=== PATIENT | male | born 1950 | race Caucasian/White ===

== ENCOUNTER 2016-04-01 07:42 | Emergency (ER) | payer OTHER ==
--- NOTE | 2016-04-01 09:05 | ERNOTE ---
Date of Service: 04/01/16 Time Seen by Provider: 04/01/16 08:45 Stated Complaint: COUGH,URI,SORE THROAT Source: patient Exam Limitations: no limitations Immunizations: IMMUNIZATION HX History of Influenza Vaccine Yes Hx Pneumococcal Vaccination No Allergies/Adverse Reactions: Allergies No Known Allergies Allergy (Unverified 04/01/16 08:21) Home Medications: HOME MEDICATIONS HYDROcodone/ACETAMINOPHEN [[place] 5-325] 1 - 2 tab PO QID PRN #30 tab 04/01/16 [ Last Taken Unknown] Lisinopril [Zestril] 20 mg PO DAILY 04/01/16 [Last Taken Unknown] - History of Present Ilness Narrative: Nasal congestion and drainage started yesterday. Went down into his chest today. Non productive cough. 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 People in his family have had respiratory illness for the last two weeks. Timing: getting worse Severity: mild Frequency/Possible Cause: Reports: occasional episodes Modifying Factors - Improves: Reports: nothing Modifying Factors - Worsens: Reports: activity, coughing Associated Symptoms: Reports: cough, nasal congestion, nasal drainage, sore throat Prior Treatment: Denies: recently seen, treated by physician, currently on antibiotics Review of Systems - Review of Systems Constitutional: Present: fatigue, malaise EYE: Present: no symptoms reported ENT: Present: nose congestion, nasal drainage, sore throat Respiratory: Present: cough Cardiology: Present: no symptoms reported Gastrointestinal/Abdominal: Present: no symptoms reported Genitourinary: Present: no symptoms reported Musculoskeletal: Present: no symptoms reported Skin: Present: no symptoms reported Neurological: Present: no symptoms reported Endocrine: Present: no symptoms reported Hematologic/Lymphatic: Present: no symptoms reported Psych: Present: no symptoms reported All Other Systems: All systems neg except as marked - Patient's Past Medical History Patient History - Medical: No pertinent hx Patient History - Cardiac/Respiratory: No pertinent hx Patient History - Cancer: No Hx of Cancer Patient History - Surgical Procedures: No surgical history - Social History Living Situations: home Alcohol Use: none Drug Use: none Physical Exam - Physical Exam General Appearance: Present: wd/wn, alert, no apparent distress Eye Exam: Normal inspection: bilateral, PERRL: bilateral, EOMI: bilateral Ears, Nose, Throat: Present: normal ENT inspection, hearing grossly normal, nasal congestion, pharyngeal erythema. Absent: abnormal TM (R), abnormal TM (L) Neck: Present: normal inspection, nontender Respiratory: Present: no respiratory distress, normal breath sounds Cardiovascular/Chest: Present: regular rate, rhythm, no murmur Gastrointestinal/Abdominal: Present: normal bowel sounds, nontender, nondistended, soft, no organomegaly Back Exam: Present: normal inspection Extremity Exam: Present: normal inspection, non-tender, no edema, normal range of motion Neurological Exam: Present: alert, oriented, normal mood/affect, no motor/ sensory deficits Skin Exam: Present: normal color, warm/dry ED Progress - Vital Signs Patient's Vital Signs:: I have reviewed the patient's vital signs. Vital Signs: Vital Signs 04/01/16 08:17 Temperature 36.4 C L Pulse Rate 73 Respiratory 12 Rate Blood Pressure 137/83 O2 Sat by Pulse 96 Oximetry - Progress/Reassessment Chief Complaint: Upper Respiratory Symptoms Departure - Departure Clinical Impression: Viral respiratory illness Disposition: Home self-care Condition: Good Instructions: Viral Respiratory Infection, [id number], Form - Excuse from Work, School, or Physical Activity Additional Instructions: Rest. Drink lots of fluids. Off work till Saturday. See your health care provider on Saturday. Referrals: Alexandria Tilley FNP [Primary Care Provider] - Prescriptions: HYDROcodone/ACETAMINOPHEN [[place] 5-325] 1 - 2 tab PO QID PRN #30 tab PRN Reason: cough or discomfort.
[2016-04-01 09:21] VITALS: BP 134/86
== END 2016-04-01 09:27 | disposition home or self-care (01) ==
LOC: ER 07:42
DX: J06.9 Acute upper respiratory infection, unspecified (principal)

== ENCOUNTER 2018-07-05 18:36 | Observation (INO) ==
[2018-07-05 19:02] LABS: Hematocrit 45.8 % (42.0-52.0); Hemoglobin 15.5 gm/dL (13.5-18.0); Mean Cell Volume 94.4 fl (78-100); Mean Corpuscular Hgb Conc 33.8 g/dl (32-36); Mean Platelet Volume 9.2 fl (8-11.3); Neutrophil # 18.5 K/mm3 (1.3-6.0); Neutrophil % 90.3 % (42-75.0); Platelet Count 346 K/mm3 (150-450); Red Blood Count 4.85 M/mm3 (4.7-6.0); Red Cell Distribution Width 12.4 % (11.5-14.0); White Blood Count 20.5 K/mm3 (4.0-10.5)
[2018-07-05] MEDS ORDERED: NORMAL SALINE 1,000 ML IV ONE ×3 (19:12→21:48)
[2018-07-05] MEDS ORDERED: KETOROLAC TROMETHAMINE 30 MG/ML VIAL IV ONE (19:14)
[2018-07-05] MEDS ORDERED: ONDANSETRON HCL/PF 2 MG/ML VIAL IV ONE (19:15)
--- NOTE | 2018-07-05 19:15 | ERNOTE ---
Date of Service: 07/05/18 Time Seen by Provider: 07/05/18 19:09 Stated Complaint: FEVER,DIZZY,COUGH Presenting Symptoms:: cough, fever, other - dizziness when up, generalized weakness and headache Source: patient, family Exam Limitations: no limitations Immunizations: IMMUNIZATION HX Immunizations Up to Date Yes History of Influenza Vaccine No Hx Pneumococcal Vaccination No Allergies/Adverse Reactions: Allergies No Known Allergies Allergy (Verified 07/05/18 18:48) Home Medications: HOME MEDICATIONS fluticasone 50 mcg/actuation nasal spray,suspension 2 spray INTRANASAL DAILY #16 g 06/10/18 [Last Taken Unknown] lisinopril 20 mg tablet 20 mg PO DAILY #90 tab 06/24/18 [Last Taken Unknown] - History of Present Ilness Narrative: 67 yr old male with HTN, hyperlipidemia, allergic rhinitis, recent influenza A and sinusitis presents with fever, dizziness and cough. This began today. Complains of weakness today, at times too weak to sit up. Denies any SOB or C/P. Complains of generalized aching and headache. He was diagnosed with influenza last week and completed his Tamiful treatment. On 06/10/18 he was diagnosed with sinusitis and treated with Augmentin. On 06/24/18 he complained of fever, cough, body aching and fatigue. He was diagnosed with Influenza A and treated with Tamiflu. Date (Duration): 07/05/18 Time (Timing): 19:09 Timing: constant, getting worse Severity: mild Frequency/Possible Cause: Reports: illness exposure - recent Influenza A and sinusitis Modifying Factors - Improves: Reports: rest Modifying Factors - Worsens: Reports: activity Associated Symptoms: Reports: cough, dizziness, headache, muscle aches, fever/chills. Denies: chest pain/soreness, shortness of breath Prior Treatment: Reports: recently seen, treated by physician - Treated for sinusitis with Augmentin on 06/10/18 and treated for Influenza A on 06/24/18 Medical History (Updated 07/05/18 @ 21:42 by ILIA Mckeon) Hyperlipidemia (Chronic) Hypertension (Chronic) Onset Date: Unknown Allergic rhinitis (Chronic) Onset Date: Unknown Influenza vaccination declined Onset Date: ~12/18/17 will receive later in the season Right elbow pain Onset Date: Unknown Surgical History: Surgical History (Updated 08/08/18 @ 16:12 by Jannette Sevilla RN) No history of previous surgery Family History: Family History (Updated 10/16/17 @ 16:12 by Jannette Sevilla RN) Father Myocardial infarction Mother Alive and well Sister Diabetes Social History: Preferred Language Maltese Do you have any islam or No cultural preference? Smoking Status Former smoker Psych History No pertinent hx Alcohol Use none (Last Updated 06/25/18 @ 12:26 by KYLAH Mathur) No Social History Section defined Physical Exam - Physical Exam General Appearance: Present: wd/wn, alert, no apparent distress Head Exam: Present: normal inspection, no evidence of injury Ears, Nose, Throat: Present: normal ENT inspection. Absent: dry mucous membranes Neck: Present: normal inspection, nontender Respiratory: Present: no respiratory distress, no accessory muscle use, decreased breath sounds - decreased in the bases . Absent: crackles, rales, rhonchi, stridor, wheezing Cardiovascular/Chest: Present: no murmur, normal peripheral pulses, tachycardia Gastrointestinal/Abdominal: Present: normal bowel sounds, nontender, nondistended, soft Neurological Exam: Present: alert, oriented, normal mood/affect, no motor/sensory deficits Skin Exam: Present: normal color, warm/dry Progress - Results and Orders Patient's Lab Results:: I have reviewed the patient's lab results. - CBC - WBC ^ 20.5, Hgb 15.5, Hct 45.8, Plt 346, Neutrophil ^ 90.3, CMP - Sodium 136, Potassium 4.2, BUN 18, Cr 1.09, Calcium 9.2, AST 17, ALT 27 Lactic acid 1.1, blood cultures pending - Vital Signs Patient's Vital Signs:: I have reviewed the patient's vital signs. - Improved during stay. Temp decreased to 37.5 blood pressure fluid sensitive Vital Signs: Vital Signs 07/05/18 18:45 Temperature 38.5 C H Pulse Rate 118 H Respiratory Rate 19 Blood Pressure 118/65 O2 Sat by Pulse Oximetry 94 - X-Ray X-Ray #1 X-Ray: chest Interpretation: Discd w/ radiologist - Potential nodule opacity ligula, consider pneumonia. Neoplasm cannot be excluded. - Progress/Reassessment Chief Complaint: Upper Respiratory Symptoms Progress Note-Subjective: 07/05/18 21:34 Test results reviewed with patient and . Etiology and treatment plan discussed. Patient feels somewhat better. O2 sat on RA - 94%, on 2 L O2 97%. Tachycardia resolved with fluids and medications. Systolic blood pressure 102 - 104 with fluid bolus. When rate decreased to 500 cc /hr, systolic pressure decreased to 94. Pressure responded to fluid increased back to bolus rate. Patient unable to urinate during stay. Discussed admission with patient and . They are agreeable. Staffed case with Dr. Javier who graciously accepted him for Observation stay. 07/05/18 21:39 Plan - Plan Plan: admit to observation Departure Clinical Impression: Pneumonia Qualifiers: Pneumonia type: due to unspecified organism Laterality: left Lung location: upper lobe of lung Qualified Code(s): J18.1 - Lobar pneumonia, unspecified organism - Departure Disposition: Still a patient Condition: Good Referrals: Alexandria Tilley FNP [Primary Care Provider] -
[2018-07-05 19:19] LABS: Albumin * 3.6 gm/dl (3.4-5.0); Anion Gap 13.7 mmol/L (6.8-13.8); BUN/Creatinine Ratio 16.5 (9.0-21.6); Ca. Corrected For Albumin 9.2 mg/dL (8.4-10.2); Calcium * 9.2 mg/dL (7.9-10.9); Carbon Dioxide 24.5 mmol/L (24-32.6); Potassium 4.2 mmol/L (3.4-4.6); Total Protein 7.4 gm/dL (6.2-8.2)
[2018-07-05] MEDS ORDERED: cefTRIAXone SODIUM 1,000 MG/100 ML BAG IV ONE (19:45)
[2018-07-05] MEDS ORDERED: METHYLPREDNISOLONE SOD SUCC/PF 40 MG/ML VIAL IV ONE (19:48)
[2018-07-05] MEDS ORDERED: ALBUTEROL SULFATE/IPRATROPIUM 3 ML NEBU IH ONE (19:48)
[2018-07-05] MEDS ORDERED: METHYLPREDNISOLONE SOD SUCC/PF 125 MG/2 ML VIAL ONE (19:51)
[2018-07-05] MEDS ORDERED: ACETAMINOPHEN 500 MG TABLET PO ONE (20:03)
[2018-07-05] MEDS ORDERED: AZITHROMYCIN 250 MG TABLET PO ONE (20:49)
[2018-07-05] MEDS ORDERED: ACETAMINOPHEN 500 MG TABLET PO PRN (21:51)
[2018-07-05] MEDS: NORMAL SALINE 1,000 ML IV PRN (22:35)
[2018-07-06 02:48] LABS: Urine Bilirubin Negative (NEGATIVE); Urine Blood 25 /ul (NEGATIVE); Urine Ketone Negative (NEGATIVE); Urine Nitrite Negative (NEGATIVE); Urine Protein Negative (NEGATIVE); Urine Urobilinogen Normal (NORMAL)
[2018-07-06 03:04] LABS: Urine Appearance Clear (CLEAR); Urine Bacteria None Seen; Urine Color Yellow; Urine RBC TRACE /hpf (0-5); Urine WBC None Seen /hpf (0-5)
[2018-07-06] MEDS: ALBUTEROL SULFATE/IPRATROPIUM 3 ML NEBU IH SCH ×4 (06:05→18:00)
[2018-07-06] MEDS: NORMAL SALINE 1,000 ML IV PRN (06:38)
[2018-07-06 06:47] LABS: Hematocrit 39.8 % (42.0-52.0); Hemoglobin 13.2 gm/dL (13.5-18.0); Mean Cell Volume 96.8 fl (78-100); Mean Corpuscular Hemoglobin 32.1 pg (27-31); Mean Corpuscular Hgb Conc 33.2 g/dl (32-36); Mean Platelet Volume 9.4 fl (8-11.3); Platelet Count 279 K/mm3 (150-450); Red Blood Count 4.11 M/mm3 (4.7-6.0); Red Cell Distribution Width 12.5 % (11.5-14.0); White Blood Count 23.6 K/mm3 (4.0-10.5)
[2018-07-06 07:00] LABS: Total Cells Counted 100
[2018-07-06 07:03] LABS: Band 2 % (0-2.0); Lymphocyte 14 % (20-51); Monocyte 5 % (0-9); Neutrophil 79 % (42-75); Neutrophil # 18.6 K/mm3 (1.3-6.0)
[2018-07-06 07:04] LABS: Platelet Estimate Normal (NORMAL); RBC Morphology Normal (NORMAL)
[2018-07-06] MEDS ORDERED: ALBUTEROL SULFATE/IPRATROPIUM 3 ML NEBU IH SCH (09:00)
[2018-07-06] MEDS: predniSONE 20 MG TABLET PO SCH (09:43)
[2018-07-06] MEDS: AZITHROMYCIN 250 MG TABLET PO SCH (09:43)
[2018-07-06] MEDS: CEFDINIR 300 MG CAPSULE PO SCH ×2 (09:44→21:03)
--- NOTE | 2018-07-06 09:47 | HP ---
Chief Complaint - Chief Complaint Date of Service: 07/06/18 Time of Service: 09:05 Chief Complaint: cough, fever History of Present Illness: Patient with past medical history of hypertension and recent influenza treated with Tamiflu presented after several hours of headache and body aches. He reports feeling similar to when he was first diagnosed with the flu. He had a fever at home up to 102. He reports coughing for several weeks, minimally productive. He states he had several respiratory infections last year, which is not like him. He has a 20-year smoking history, quit 15 to 20 years ago. He was given some fluids in the ER for somewhat low blood pressure. He takes 20 mg lisinopril at home for HTN. He was given Rocephin, azithromycin, 80 mg of IV Solu-Medrol in the ED. Negative influenza, WBC of 20.5, elevated neutrophils. Potential pneumonia on chest x-ray, seen best on lateral view. This morning, he reports feeling much better. He was requiring some oxygen via [place] overnight, but that has been removed this morning. Medical History (Updated 07/05/18 @ 21:42 by ILIA Mckeon) Hyperlipidemia (Chronic) Hypertension (Chronic) Onset Date: Unknown Allergic rhinitis (Chronic) Onset Date: Unknown Influenza vaccination declined Onset Date: ~12/18/17 will receive later in the season Right elbow pain Onset Date: Unknown Surgical History: Surgical History (Updated 10/16/17 @ 16:12 by Jannette Sevilla RN) No history of previous surgery Family History: Family History (Updated 10/16/17 @ 16:12 by Jannette Sevilla RN) Father Myocardial infarction Mother Alive and well Sister Diabetes Social History: Patient Lives/Resources Home Utilized Occupation [employer] Preferred Language Spanish Do you have any yarsani or No cultural preference? Smoking Status Never smoker Have you smoked in the past 12 No months Do you dip or chew tobacco No Psych History No pertinent hx Alcohol Use none (Last Updated 06/25/18 @ 12:26 by KYLAH Mathur) No Social History Section defined Review Of Systems (GEN) - Review of Systems Generalized/Overall Review: Present: Fever Respiratory: Present: Cough Cardiac: Present: Chest Pain - with cough Abdominal: Absent: Nausea Genitourinary: Present: No Symptoms Reported Skin: Present: No Symptoms Reported Immunizations: IMMUNIZATION HX Immunizations Up to Date Yes History of Influenza Vaccine No Hx Pneumococcal Vaccination No Allergies/Adverse Reactions: Allergies Allergy/AdvReac Type Severity Reaction Status Date / Time No Known Allergies Allergy Verified 07/05/18 18:48 Home Medications: HOME MEDICATIONS fluticasone 50 mcg/actuation nasal spray,suspension 2 spray INTRANASAL DAILY #16 g 06/10/18 [Last Taken Unknown] lisinopril 20 mg tablet 20 mg PO DAILY #90 tab 06/24/18 [Last Taken Unknown] Exam - Exam Vital Signs: Vital Signs - Last Taken Temp 36.6 C 07/06/18 07:25 Pulse 75 07/06/18 07:25 Resp 16 07/06/18 07:25 BP 105/57 07/06/18 07:25 Pulse Ox 97 07/06/18 07:25 Constitutional: Present: Alert, Oriented x3, Cooperative, Well developed, No distress Respiratory: Present: lungs clear, normal breath sounds, other - room air Cardiovascular/Chest: Present: regular rate, rhythm Abdomen: Present: Normal bowel sounds, soft, nontender Extremity: Absent: lower extremity edema Eye contact: Present: cooperative, good eye contact Diagnostic Studies: Abnormal Lab Results 07/05/18 07/06/18 07/06/18 Range/Units 18:57 02:29 06:40 WBC 20.5 H 23.6 H (4.0-10.5) K/mm3 RBC 4.11 L (4.7-6.0) M/mm3 Hgb 13.2 L (13.5-18.0) gm/dL Hct 39.8 L (42.0-52.0) % MCH 32.0 H 32.1 H (27-31) pg Immature Gran % (Auto) 0.60 H (0.001-0.429) % Immature Gran # (Auto) 0.12 H (0.000-0.0310) K/mm3 Neutrophils % 90.3 H (42-75.0) % Neutrophils % (Manual) 79 H (42-75) % Lymphocytes % 4.1 L (20-51) % Lymphocytes % (Manual) 14 L (20-51) % Neutrophils # 18.5 H (1.3-6.0) K/mm3 Neutrophils # (Manual) 18.6 H (1.3-6.0) K/mm3 Lymphocytes # 0.84 L (1.5-3.5) k/mm3 Monocytes # (Manual) 1.2 H (0.0-1.0) k/mm3 Urine Glucose (UA) 250 H (NEGATIVE) mg/dL Urine Blood 25 H (NEGATIVE) /ul Laboratory Results WBC 23.6 K/mm3 (4.0-10.5) H 07/06/18 06:40 RBC 4.11 M/mm3 (4.7-6.0) L 07/06/18 06:40 Hgb 13.2 gm/dL (13.5-18.0) L 07/06/18 06:40 Hct 39.8 % (42.0-52.0) L 07/06/18 06:40 MCV 96.8 fl (78-100) 07/06/18 06:40 MCH 32.1 pg (27-31) H 07/06/18 06:40 MCHC 33.2 g/dl (32-36) 07/06/18 06:40 RDW 12.5 % (11.5-14.0) 07/06/18 06:40 Plt Count 279 K/mm3 (150-450) 07/06/18 06:40 MPV 9.4 fl (8-11.3) 07/06/18 06:40 Immature Gran % (Auto) 0.60 % (0.001-0.429) H 07/05/18 18:57 Immature Gran # (Auto) 0.12 K/mm3 (0.000-0.0310) H 07/05/18 18:57 90.3 % (42-75.0) H 07/05/18 18:57 79 % (42-75) H 07/06/18 06:40 Band Neuts % (Manual) 2 % (0-2.0) 07/06/18 06:40 4.1 % (20-51) L 07/05/18 18:57 14 % (20-51) L 07/06/18 06:40 4.4 % (0.0-9) 07/05/18 18:57 5 % (0-9) 07/06/18 06:40 0.4 % (0.0-3.0) 07/05/18 18:57 0.2 % (0.0-1.0) 07/05/18 18:57 Nucleated RBC % 0.0 k/mm3 (0-1) 07/05/18 18:57 18.5 K/mm3 (1.3-6.0) H 07/05/18 18:57 18.6 K/mm3 (1.3-6.0) H 07/06/18 06:40 0.84 k/mm3 (1.5-3.5) L 07/05/18 18:57 3.3 k/mm3 (1.5-3.5) 07/06/18 06:40 0.9 k/mm3 (0.0-1.0) 07/05/18 18:57 1.2 k/mm3 (0.0-1.0) H 07/06/18 06:40 0.1 k/mm3 (0.0-0.7) 07/05/18 18:57 Absolute Basophils 0.0 k/mm3 (0.0-0.1) 07/05/18 18:57 Trace 07/06/18 06:40 Normal (NORMAL) 07/06/18 06:40 RBC Morphology Normal (NORMAL) 07/06/18 06:40 Sodium 136 mmol/L (132-142) 07/05/18 18:57 136 mmol/L (130-142) 07/05/18 18:57 Potassium 4.2 mmol/L (3.4-4.6) 07/05/18 18:57 Chloride 102 mmol/L (97-106) 07/05/18 18:57 Carbon Dioxide 24.5 mmol/L (24-32.6) 07/05/18 18:57 13.7 mmol/L (6.8-13.8) 07/05/18 18:57 BUN 18 mg/dL (6-23) 07/05/18 18:57 1.09 mg/dL (0.4-1.4) 07/05/18 18:57 Est GFR (Non-Af Amer) 72 mL/min (60-130) 07/05/18 18:57 16.5 (9.0-21.6) 07/05/18 18:57 108 mg/dL (70-110) 07/05/18 18:57 1.1 mmol/L (0.4-2.0) 07/05/18 18:57 Calcium 9.2 mg/dL (7.9-10.9) 07/05/18 18:57 Calcium Adj for Albumin 9.2 mg/dL (8.4-10.2) 07/05/18 18:57 1.0 mg/dL (0.0-1.1) 07/05/18 18:57 AST 17 U/L (0-48) 07/05/18 18:57 ALT 27 U/L (19-67) 07/05/18 18:57 82 U/L (50-170) 07/05/18 18:57 7.4 gm/dL (6.2-8.2) 07/05/18 18:57 3.6 gm/dl (3.4-5.0) 07/05/18 18:57 Yellow 07/06/18 02:29 Clear (CLEAR) 07/06/18 02:29 6.0 pH (5.0-7.0) 07/06/18 02:29 Ur Specific [place] 1.010 SP.GR. (1.005-1.030) 07/06/18 02:29 Negative mg/dL (NEGATIVE) 07/06/18 02:29 250 mg/dL (NEGATIVE) H 07/06/18 02:29 Negative mg/dL (NEGATIVE) 07/06/18 02:29 25 /ul (NEGATIVE) H 07/06/18 02:29 Negative (NEGATIVE) 07/06/18 02:29 Negative mg/dl (NEGATIVE) 07/06/18 02:29 Normal EU/dl (NORMAL) 07/06/18 02:29 Ur Leukocyte Esterase Negative /ul (NEGATIVE) 07/06/18 02:29 Trace /hpf (0-5) 07/06/18 02:29 None seen /hpf (0-5) 07/06/18 02:29 Ur Epithelial Cells Trace /hpf (0-5) 07/06/18 02:29 None seen (NONE) 07/06/18 02:29 No culture indicated 07/06/18 02:29 Influenza Type A Ag Negative (NEGATIVE) 07/05/18 20:10 Influenza Type B Ag Negative (NEGATIVE) 07/05/18 20:10 Assessment/Plan - Assessment/Plan (1) Pneumonia Assessment: Potential pneumonia seen on the lateral view of the CXR. With his fever and cough, will treat for pneumonia. He was given a dose of Rocephin and azithromycin last night in the ER. We will continue with Ceftinir and 5 days of azithromycin. He has an approximate 20-year smoking history, quit 15 to 20 years ago, indicating he may have some undiagnosed COPD. He was given Solu- Medrol in the ED last night, and will continue with 20 mg p.o. prednisone for a total of 5 days of steroids. Would recommend PFTs after this current infection has resolved. His white count did increase from 20.5 to 23.6, but this may have been from the steroids. He feels better this morning. With his increase in white count, however, and given his duration of illness, would recommend keeping him another night and reassessing tomorrow. Discharging today may be premature and could result in readmission. Would like for him to be off work at least through Saturday. Problem: Suspected Qualifiers: Pneumonia type: due to unspecified organism Laterality: left Lung location: upper lobe of lung Qualified Code(s): J18.1 - Lobar pneumonia, unspecified organism (2) Fever Assessment: No other signs of infection other than his upper respiratory illness. Likely pneumonia. Lactate of 1.1. Problem: Acute (3) Hypertension Assessment: Blood pressure has been decreased. This morning his readings have been around 105/57. Holding his home lisinopril. Will resume when his blood pressure is consistently greater than 140/90. Problem: Chronic Qualifiers:
[2018-07-07 05:46] LABS: Hematocrit 36.7 % (42.0-52.0); Hemoglobin 12.2 gm/dL (13.5-18.0); Mean Cell Volume 96.1 fl (78-100); Mean Corpuscular Hemoglobin 31.9 pg (27-31); Mean Corpuscular Hgb Conc 33.2 g/dl (32-36); Mean Platelet Volume 9.9 fl (8-11.3); Neutrophil # 13.8 K/mm3 (1.3-6.0); Neutrophil % 79.1 % (42-75.0); Platelet Count 270 K/mm3 (150-450); Red Blood Count 3.82 M/mm3 (4.7-6.0); White Blood Count 17.5 K/mm3 (4.0-10.5)
[2018-07-07] MEDS: ALBUTEROL SULFATE/IPRATROPIUM 3 ML NEBU IH SCH (06:08)
[2018-07-07] MEDS: AZITHROMYCIN 250 MG TABLET PO SCH (08:12)
[2018-07-07] MEDS: CEFDINIR 300 MG CAPSULE PO SCH (08:12)
[2018-07-07] MEDS: predniSONE 20 MG TABLET PO SCH (08:12)
--- NOTE | 2018-07-07 08:53 | DS ---
(1) Pneumonia Problem: Acute Qualifiers: Pneumonia type: due to unspecified organism Laterality: left Lung location: upper lobe of lung Qualified Code(s): J18.1 - Lobar pneumonia, unspecified organism (2) Fever Problem: Resolved (3) Hypertension Problem: Chronic Qualifiers: Hypertension type: essential hypertension Description of Stay: Patient with past medical history of hypertension and recent influenza treated with Tamiflu presented after several hours of headache and body aches. He r eported feeling similar to when he was first diagnosed with the flu. He had a fever at home up to 102. He reports coughing for several weeks, minimally productive. He states he had several respiratory infections last year, which is not like him. He has a 20-year smoking history, quit 15 to 20 years ago. He was given some fluids in the ER for somewhat low blood pressure. He takes 20 mg lisinopril at home for HTN. He was given Rocephin, azithromycin, 80 mg of IV Solu-Medrol in the ED. Negative influenza, WBC of 20.5, elevated neutrophils. Potential pneumonia on chest x-ray, seen best on lateral view. It was nodular in appearance, and it is recommended follow up imaging be done in 6-8 weeks. He initially required some oxygen via [place] the first night of admission. He initially required some oxygen via [place] the first night of admission. He felt better the day after admission, but his WBC increased to 23.5. He was transitioned to po cefdinir, and continued on azithromycin. 20 mg prednisone was started 07/06. On the day of DC, his WBC improved to 17.5. His home lisinopril was held during his admission, as his BP remained less than 120/80 consistently. Recommend reevaluating at his [facility] appt to see if this needs to be resumed. Given his multiple respiratory infections over the last year, would also recommend PFTs be done after this illness has resolved. The CXR and PFTs h ave been ordered with his DC orders. Procedures Performed: none Results and Findings: Pending Mircobiology Results 07/05/18 19:25 Blood Blood Culture - Preliminary NO GROWTH 24 HOURS 07/05/18 18:57 Blood Blood Culture - Preliminary NO GROWTH 24 HOURS Lab Pending Results 07/05/18 18:57: WBC 20.5 H, RBC 4.85, Hgb 15.5, Hct 45.8, MCV 94.4, MCH 32.0 H, MCHC 33.8, RDW 12.4, Plt Count 346, MPV 9.2, Immature Gran % (Auto) 0.60 H, I mmature Gran # (Auto) 0.12 H, Neutrophils % 90.3 H, Lymphocytes % 4.1 L, Monocytes % 4.4, Eosinophils % 0.4, Basophils % 0.2, Nucleated RBC % 0.0, Neutrophils # 18.5 H, Lymphocytes # 0.84 L, Monocytes # 0.9, Eosinophils # 0.1, Absolute Basophils 0.0 07/05/18 18:57: Sodium 136, Plasma Sodium 136, Potassium 4.2, Chloride 102, Carbon Dioxide 24.5, Anion Gap 13.7, BUN 18, Creatinine 1.09, Est GFR (Non-Af Amer) 72, BUN/Creatinine Ratio 16.5, Random Glucose 108, Calcium 9.2, Calcium Adj for Albumin 9.2, Total Bilirubin 1.0, AST 17, ALT 27, Alkaline Phosphatase 82, Total Protein 7.4, Albumin 3.6 07/05/18 18:57: Lactic Acid, Venous 1.1 07/05/18 20:10: Influenza Type A Ag Negative, Influenza Type B Ag Negative 07/06/18 02:29: Urine Color Yellow, Urine Appearance Clear, Urine pH 6.0, Ur Specific [place] 1.010, Urine Protein Negative, Urine Glucose (UA) 250 H, Urine Ketones Negative, Urine Blood 25 H, Urine Nitrate Negative, Urine Bilirubin Negative, Urine Urobilinogen Normal, Ur Leukocyte Esterase Negative, Urine RBC Trace, Urine WBC None seen, Ur Epithelial Cells Trace, Urine Bacteria None seen, Urine Culture Comments No culture indicated 07/06/18 06:40: WBC 23.6 H, RBC 4.11 L, Hgb 13.2 L, Hct 39.8 L, MCV 96.8, MCH 32.1 H, MCHC 33.2, RDW 12.5, Plt Count 279, MPV 9.4, Neutrophils % (Manual) 79 H, Band Neuts % (Manual) 2, Lymphocytes % (Manual) 14 L, Monocytes % (Manual) 5, Neutrophils # (Manual) 18.6 H, Lymphocytes # (Manual) 3.3, Monocytes # (Manual) 1.2 H, Toxic Vacuolation Trace, Platelet Estimate Normal, RBC Morphology Normal 07/07/18 05:40: WBC 17.5 H D, RBC 3.82 L, Hgb 12.2 L, Hct 36.7 L, MCV 96.1, MCH 31.9 H, MCHC 33.2, RDW 13.0, Plt Count 270, MPV 9.9, Immature Gran % (Auto) 0.70 H, Immature Gran # (Auto) 0.13 H, Neutrophils % 79.1 H, Lymphocytes % 14.1 L, Monocytes % 5.7, Eosinophils % 0.2, Basophils % 0.2, Nucleated RBC % 0.0, Neutrophils # 13.8 H, Lymphocytes # 2.46, Monocytes # 1.0, Eosinophils # 0.0, Absolute Basophils 0.0 Discharge Location: Home Disposition: Home self-care Condition: Good Discharge Activity: Activity as tolerated Discharge Diet: General/regular food Referrals: Alexandria Tilley FNP [Primary Care Provider] - 07/09/18 Prescriptions (Any new or edited meds): Cefdinir [Omnicef] 300 mg PO BID #2 cap predniSONE [Prednisone] 20 mg PO DAILY #2 tab Azithromycin [Zithromax] 250 mg PO DAILY #2 tab Complete Home Medications List: Complete Home Medication List: fluticasone 50 mcg/actuation nasal spray,suspension 2 spray INTRANASAL DAILY #16 g 06/10/18 lisinopril 20 mg tablet 20 mg PO DAILY #90 tab 06/24/18 Azithromycin [Zithromax] 250 mg PO DAILY #2 tab 07/07/18 Cefdinir [Omnicef] 300 mg PO BID #2 cap 07/07/18 predniSONE [Prednisone] 20 mg PO DAILY #2 tab 07/07/18
[2018-07-07 09:46] VITALS: BP 121/68
== END 2018-07-07 10:08 | disposition home or self-care (01) ==
LOC: ER 18:36 → MS 18:36
PROVIDERS: ADMIT Family Medicine; ATTEND Family Medicine
CPT/HCPCS: 36415; 71020; 71046; 80053; 81001; 83605; 85025; 87040; 87400; 87449; 94640; 94664; 94760; 96361; 96365; 96375; 99285; G0378; J2405